=== PATIENT | male | born 1985 | race Two or more races ===

== ENCOUNTER → 2019-04-02 | Outpatient (CLI) | payer OTHER ==
[~2019-04-02] MED LIST: CHOL500025 PO
[2019-04-02 14:52] LABS: PLATELET COUNT, AUTOMATED 245 K/uL (150-450)
--- NOTE | 2019-04-02 15:38 | RADIOLOGY IMAGING REPORT ---
FACILITY: [facility] PATIENT NAME: Desmond Crabtree : 1985 MR: [id number] V: [id number] EXAM DATE: ORDERING PHYSICIAN: OLE BATISTA TECHNOLOGIST: [place] [facility] [place]: Desmond Crabtree : 1985 Visit/Account:[id number] Date of Sevice: 04/02/2019 Exam type: ARTERIAL LOWER EXT RIGHT History: Hx of Right Thigh Abscess Comparison: None. Findings: There is triphasic flow seen throughout the right lower extremity arterial tree. The peak systolic v elocities in the right lower extremity expressed in centimeters per second are as follows: Right YARROW GATHERER: 84.7 Right profunda femoral: 64.9 Right SFA proximal: 88.4 Right SFA mid: 74.6 Right SFA distal: 60.9 Right popliteal proximal: 86.2 Right popliteal distal: 79 Peroneal artery: 35.2 Posterior tibial artery: 77.2 Anterior tibial artery 72.7 Dorsalis pedis artery: 79.1 IMPRESSION: 1. There is triphasic flow seen throughout the right lower extremity arterial tree with no evidence of abnormal elevated velocities demonstrated Report Dictated By: Carli Forde MD at 04/02/2019 3:23 PM Report E-Signed By: Carli Forde MD at 04/02/2019 3:34 PM WSN:[email or web address]
== END ==
LOC: US 00:53
PROVIDERS: ATTEND Internal Medicine
DX: M79.651 Pain in right thigh (principal); R53.82 Chronic fatigue, unspecified; Z87.2 Personal history of diseases of the skin and subcutaneous tissue
CPT/HCPCS: 36415; 82040; 82247; 82306; 82310; 82374; 82435; 82565; 82607; 82746; 82947; 84075; 84132; 84155; 84295; 84450; 84460; 84520; 85025; 85651; 86140